=== PATIENT | male | born 1940 | race Caucasian/White ===

== ENCOUNTER 2020-05-29 16:51 | Emergency (ER) | payer OTHER ==
[2020-05-29 17:21] VITALS: BP 148/78; PULSE 85
[2020-05-29] MEDS ORDERED: Albuterol/Ipratropium 3.0-0.5 MG/3 ML Neb Soln NEB ONE (17:58)
--- NOTE | 2020-05-29 18:00 | EDM.PDOC ---
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 He sleeps sitting up in a recliner but has for some time. No fever or chills. Not coughing up anything. He does not aerosol in the morning and puffers later in the day. He sees Dr. Castillo at the [facility] in [place] and has a scheduled PET scan apparently coming up in [place] soon. Says he has not eaten much in recent days because he does not have any teeth and he has trouble chewing anything other than Rakan Arnaldo. Also concerned that he has not had much bowel movement the last few days but has not eaten much. Denies any chest pain. - Related Data Allergies Allergy/AdvReac Type Severity Reaction Status Date / Time ether [Ether] Allergy Severe Anaphylactic Verified 05/29/20 17:02 Shock Home Meds: Home Meds Aspirin 1 tab PO Q8H PRN 04/23/18 [History] Cholecalciferol (Vitamin D3) [Vitamin D3] 1 cap PO DAILY 04/23/18 [History] Multivitamin [One Daily] 1 tab PO DAILY 04/23/18 [History] Triamcinolone Aceton/0.9% NaCl [Triamcinolone Acet 100 mg/2 ml] 1 applic TOP BID 04/23/18 [History] Albuterol Sulfate [Proair Hfa] 2 puff IH Q6HR PRN 05/29/20 [History] Tiotropium [Spiriva HandiHaler] 1 puff IH DAILY 05/29/20 [History] Past Medical History HEENT History: Reports: Hard of Hearing, Impaired Vision Other HEENT History: dentures Respiratory History: Reports: COPD Other Respiratory History: due for follow up chest xray because Dr Mohamud saw a spot on left lung back in jun 2014. Genitourinary History: Reports: Other (See Below) Other Genitourinary History: frequent urination Oncologic (Cancer) History: Reports: Other (See Below) Other Oncologic History: hx of penial cancer Dermatologic History: Reports: Other (See Below) Other Dermatologic History: tick bite 2 yrs ago, treated with antibotics - Infectious Disease History Infectious Disease History: Reports: Measles - Past Surgical History Head Surgeries/Procedures: Reports: None HEENT Surgical History: Reports: Other (See Below) Other HEENT Surgeries/Procedures: 1964 - broken jaw, facial reconstructive surg suyapa Respiratory Surgical History: Reports: None GI Surgical History: Reports: Appendectomy Male Surgical History: Reports: TURP-Transurethral Resection of Prostate Oncologic Surgical History: Reports: None Dermatological Surgical History: Reports: None Social & Family History - Tobacco Use Tobacco Use Status *Q: Former Tobacco User Used Tobacco, but Quit: Yes Month/Year Tobacco Last Used: 2017 Second Hand Smoke Exposure: No - Caffeine Use Caffeine Use: Reports: Coffee - Recreational Drug Use Recreational Drug Use: No ED ROS GENERAL - Review of Systems Review Of Systems: See Below Constitutional: Reports: No Symptoms (10 systems reviewed he has no real acute changes other than primarily the respiratory issue and also not eating much because of a tooth problem or absence thereof) ED EXAM, GENERAL - Physical Exam Exam: See Below Free Text/Narrative:: Alert cooperative male sitting on the gurney who talks vigorously from the time I entered the room until I began asking questions. He suggest that he short of breath but he has no trouble speaking to me. HEENT shows eyes ears nose and throat otherwise are normal. He is edentulous. Neck is supple normal range of motion Chest has a scattered rhonchi there is a regular rate and rhythm Abdomen soft active bowel sounds no mass or tenderness Skin without notable edema or rash Extremities without deformity Neurologic is physiologic tone motion Exam Limited By: No Limitations Course - Vital Signs Text/Narrative:: Aerosols will be given to see we can help him breathe. Chest x-ray and KUB and laboratory tests Departure - Departure Disposition: Home, Self-Care 01 Clinical Impression: Pleural effusion, right, Shortness of breath - Discharge Information Instructions: Pleural Effusion Referrals: Hans Mohamud Sr, MD [Primary Care Provider] - Forms: ED Department Discharge Care Plan Goals: Take course of Zithromax as prescribed and prednisone daily with food also as prescribed. Recheck as scheduled and continue your other current medications. Return anytime if worsening or concerns. Sepsis Event Note (ED) - Evaluation Sepsis Screening Result: No Definite Risk <Bob Jacobson - Last Filed: 05/29/20 19:48> Course - Vital Signs Last Recorded V/S: Last Vital Signs Temp 98.1 F 05/29/20 17:07 Pulse 85 05/29/20 17:07 Resp 16 05/29/20 17:07 BP 148/78 H 05/29/20 17:07 Pulse Ox 97 05/29/20 17:07 - Orders/Labs/Meds Orders: Active Orders 24 hr Category Date Time Status EKG Documentation Completion [RC] ASDIRECTED Care 05/29/20 17:57 Active RT Aerosol Therapy [RC] ASDIRECTED Care 05/29/20 17:58 Active Abdomen 1V Flat [CR] Stat Exams 05/29/20 17:57 Taken Chest 1V Frontal [CR] Stat Exams 05/29/20 17:57 Taken EKG 12 Lead [EK] Stat Ther 05/29/20 17:56 Ordered Labs: Laboratory Tests 05/29/20 05/29/20 05/29/20 Range/Units 18:13 18:13 18:13 WBC 7.4 (4.5-11.0) K/uL RBC 5.12 (4.30-5.90) M/uL Hgb 14.1 (12.0-15.0) g/dL Hct 42.1 (40.0-54.0) % MCV 82 (80-98) fL MCH 28 (27-31) pg MCHC 34 (32-36) % Plt Count 323 (150-400) K/uL D-Dimer, Quantitative 1573.64 H (0.0-500.0) ng/mL ABG Hemoglobin (13.5-18.0) g/dL ABG Oxyhemoglobin % ABG Carboxyhemoglobin (0.0-1.6) % ABG Methemoglobin % VBG pH (7.350-7.450) VBG pCO2 mm/Hg VBG pO2 mm/Hg VBG HCO3 mmol/L VBG Total CO2 mmol/L VBG O2 Saturation VBG O2 Content %vol VBG Base Excess mm/L O2 Delivery Device Sodium 131 L (140-148) mmol/L Potassium 4.4 (3.6-5.2) mmol/L Chloride 100 (100-108) mmol/L Carbon Dioxide 23 (21-32) mmol/L Anion Gap 12.4 (5.0-14.0) mmol/L BUN 17 (7-18) mg/dL Creatinine 1.3 (0.8-1.3) mg/dL Est Cr Clr Drug Dosing 49.07 mL/min Estimated GFR (MDRD) 53 L (>60) Glucose 84 (74-106) mg/dL Calcium 10.0 (8.5-10.1) mg/dL Total Bilirubin 0.6 (0.2-1.0) mg/dL AST 24 (15-37) U/L ALT 23 (12-78) U/L Alkaline Phosphatase 58 (46-116) U/L Troponin I < 0.017 (0.000-0.056) ng/mL C-Reactive Protein 0.62 H (0.0-0.3) mg/dL Total Protein 8.1 (6.4-8.2) g/dL Albumin 3.6 (3.4-5.0) g/dL Globulin 4.5 H (2.3-3.5) g/dL Albumin/Globulin Ratio 0.8 L (1.2-2.2) Urine Color (YELLOW) Urine Appearance (CLEAR) Urine pH (5.0-8.0) Ur Specific Ringling (1.008-1.030) Urine Protein (NEGATIVE) mg/dL Urine Glucose (UA) (NEGATIVE) mg/dL Urine Ketones (NEGATIVE) mg/dL Urine Occult Blood (NEGATIVE) Urine Nitrite (NEGATIVE) Urine Bilirubin (NEGATIVE) Urine Urobilinogen (0.2-1.0) EU/dL Ur Leukocyte Esterase (NEGATIVE) Urine RBC (0-5) Urine WBC (0-5) Ur Epithelial Cells Amorphous Sediment Urine Bacteria Urine Mucus 05/29/20 05/29/20 Range/Units 18:13 18:26 WBC (4.5-11.0) K/uL RBC (4.30-5.90) M/uL Hgb (12.0-15.0) g/dL Hct (40.0-54.0) % MCV (80-98) fL MCH (27-31) pg MCHC (32-36) % Plt Count (150-400) K/uL D-Dimer, Quantitative (0.0-500.0) ng/mL ABG Hemoglobin 14.7 (13.5-18.0) g/dL ABG Oxyhemoglobin 80.5 % ABG Carboxyhemoglobin 2.6 H (0.0-1.6) % ABG Methemoglobin 0.7 % VBG pH 7.427 (7.350-7.450) VBG pCO2 34.5 mm/Hg VBG pO2 48.6 mm/Hg VBG HCO3 22.3 mmol/L VBG Total CO2 19.4 mmol/L VBG O2 Saturation 83.2 VBG O2 Content 16.6 %vol VBG Base Excess -0.9 mm/L O2 Delivery Device Room air Sodium (140-148) mmol/L Potassium (3.6-5.2) mmol/L Chloride (100-108) mmol/L Carbon Dioxide (21-32) mmol/L Anion Gap (5.0-14.0) mmol/L BUN (7-18) mg/dL Creatinine (0.8-1.3) mg/dL Est Cr Clr Drug Dosing mL/min Estimated GFR (MDRD) (>60) Glucose (74-106) mg/dL Calcium (8.5-10.1) mg/dL Total Bilirubin (0.2-1.0) mg/dL AST (15-37) U/L ALT (12-78) U/L Alkaline Phosphatase (46-116) U/L Troponin I (0.000-0.056) ng/mL C-Reactive Protein (0.0-0.3) mg/dL Total Protein (6.4-8.2) g/dL Albumin (3.4-5.0) g/dL Globulin (2.3-3.5) g/dL Albumin/Globulin Ratio (1.2-2.2) Urine Color Yellow (YELLOW) Urine Appearance Clear (CLEAR) Urine pH 5.5 (5.0-8.0) Ur Specific Ringling 1.025 (1.008-1.030) Urine Protein Negative (NEGATIVE) mg/dL Urine Glucose (UA) Negative (NEGATIVE) mg/dL Urine Ketones 15 H (NEGATIVE) mg/dL Urine Occult Blood Negative (NEGATIVE) Urine Nitrite Negative (NEGATIVE) Urine Bilirubin Negative (NEGATIVE) Urine Urobilinogen 0.2 (0.2-1.0) EU/dL Ur Leukocyte Esterase Small H (NEGATIVE) Urine RBC 0-5 (0-5) Urine WBC 0-5 (0-5) Ur Epithelial Cells Rare Amorphous Sediment Rare Urine Bacteria Rare Urine Mucus Rare Meds: Medications Discontinued Medications Generic Name Dose Route Start Last Admin Trade Name Freq PRN Reason Stop Dose Admin Albuterol/Ipratropium 3 ml 05/29/20 17:58 05/29/20 18:26 Duoneb 3.0-0.5 Mg/3 Ml NEB 05/29/20 17:59 3 ml ONETIME ONE Administration - Re-Assessments/Exams Free Text/Narrative Re-Assessment/Exam: 05/29/20 19:46 Patient care received from Dr. Delacruz pending lab and x-ray. Chest x-ray shows right pleural effusion with possible lesions, when I discussed this with the patient apparently [facility] and he already has a PET scan scheduled for later this week. His D-dimer was significantly elevated and I discussed with him a CT angiogram may give us more information but he declined that at this time and wants to get it later this week. He will be put on a short course of oral prednisone and Zithromax follow-up as scheduled. Copies of the labs, the x-ray and EKG were given to the patient for his appointment later this week. Departure - Departure Time of Disposition: 19:48 Sepsis Event Note (ED) - Focused Exam Vital Signs: Vital Signs Temp Pulse Resp BP Pulse Ox 05/29/20 17:07 98.1 F 85 16 148/78 H 97 05/29/20 17:06 98.1 F 85 16 148/78 H 97
--- NOTE | 2020-05-30 09:09 | CR ---
CHEST: PA CLINICAL HISTORY:Pain COMPARISON:CT chest 2018 FINDINGS: Patient is a small right pleural effusion which is new since prior study. There are nodular densities in the right infrahilar region consistent with annulus. There is some peripheral density in the right which may be pleural parenchymal scarring or fluid in the fissure. Left lung is clear. Heart and pulmonary vascularity are normal IMPRESSION: Small right pleural effusion with possible pleural thickening or pleural parenchymal scarring Known granulomatous disease Abdomen 1V Flat CLINICAL HISTORY: Constipation FINDINGS: No free air is identified. There are scattered granulomata in the liver and spleen. Small intestinal gas pattern is nonacute. There is a small calcification near the lateral psoas margin on the left at the L4 level. This may be within the retroperitoneum. A ureteral calcification is felt less likely but not excluded IMPRESSION: Nonacute intestinal gas pattern Previous granulomatous exposure Small left the paraspinal calcification near L4. Ureteral calcification felt unlikely but not excluded
== END 2020-05-29 20:01 | disposition home or self-care (01) ==
LOC: JP.ED 16:51
DX: J90 Pleural effusion, not elsewhere classified (principal); J44.9 Chronic obstructive pulmonary disease, unspecified; Z91.048 Other nonmedicinal substance allergy status; Z79.82 Long term (current) use of aspirin; Z79.899 Other long term (current) drug therapy; Z87.891 Personal history of nicotine dependence
CPT/HCPCS: 36415; 71045; 71045-26; 74018; 74018-26; 80053; 81001; 82803; 84484; 85027; 85379; 86140; 93005; 93010; 94640; 99284; 99285-25; J7620-GY

== ENCOUNTER 2020-07-14 14:28 | Observation (INO) | payer OTHER ==
--- NOTE | 2020-07-14 15:47 | CRLCT ---
Indication: Fall, head injury Technique: Volumetric multidetector CT images of the head were obtained without the administration of low osmolar intravenous contrast. Comparison: CT head December 28, 2014 Findings: There is a minimal amount of layering posttraumatic subarachnoid blood along the left frontal convexity. There is no other significant extra-axial or intra-axial fluids identified. There is no mass effect or midline shift. Again seen is moderate cortical atrophy predominantly of the frontal lobes and temporal lobes with prominence of the extra-axial CSF spaces. Ex vacuo dilatation of the lateral ventricles is appreciated with mild asymmetry of the left greater than right lateral ventricles. There are chronic small vessel disease changes in the subcortical and periventricular white matter without lost rosas-white differentiation. The orbits and their contents are grossly within normal limits. There is likely a small sebaceous cyst within the left parietal subcutaneous soft tissues. Otherwise, the bony calvarium is grossly intact. The paranasal sinuses are clear. The mastoid air cells are well aerated. Impression: Demonstration of a minimal amount of layering traumatic subarachnoid blood along the left frontal convexity sulci without evidence of significant intra-axial or extra-axial fluid collection. No evidence of midline shift. Age-related changes are appreciated. Please note that all CT scans at this facility use dose modulation, iterative reconstruction, and/or weight-based dosing when appropriate to reduce radiation dose to as low as reasonably achievable. Dictated by Shaan Moore MD @ Jul 14 2020 3:43PM Signed by Dr. Shaan Moore @ Jul 14 2020 3:46PM
--- NOTE | 2020-07-14 15:56 | EDM.PDOC ---
ED HPI GENERAL MEDICAL PROBLEM - General Chief Complaint: Head Injury Stated Complaint: FALL VIA NORTH Time Seen by Provider: 07/14/20 15:00 Source of Information: Reports: Patient History Limitations: Reports: No Limitations - History of Present Illness INITIAL COMMENTS - FREE TEXT/NARRATIVE: 80-year-old male was chasing a large ball through the parking lot that was blowing in the wind when he stumbled and hit his left parietal scalp hard on the concrete. His friend that was with him thought he may have been out "for a little bit". He now feels nauseous but otherwise feels okay. No neurologic deficits, just slight confusion. He has a few abrasions on his left arm, otherwise the injury that is concerning is a hematoma on the left parietal scalp. Onset: Sudden Duration: Hour(s): Location: Reports: Head (Left parietal scalp) Associated Symptoms: Reports: Confusion (Mild confusion), Other (Nausea but no vomiting) Headache Pain Score (Numeric/FACES): 3 - Related Data Allergies Allergy/AdvReac Type Severity Reaction Status Date / Time ether [Ether] Allergy Severe Anaphylactic Verified 07/14/20 14:34 Shock Home Meds: Home Meds Cholecalciferol (Vitamin D3) [Vitamin D3] 1 cap PO DAILY 04/23/18 [History] Multivitamin [One Daily] 1 tab PO DAILY 04/23/18 [History] Albuterol Sulfate [Proair Hfa] 2 puff IH Q6HR PRN 05/29/20 [History] Umeclidinium Orwell [Incruse Ellipta*] 1 inhalation INH DAILY 07/14/20 [History] Past Medical History HEENT History: Reports: Hard of Hearing, Impaired Vision Other HEENT History: dentures Respiratory History: Reports: COPD Other Respiratory History: due for follow up chest xray because Dr Mohamud saw a spot on left lung back in jun 2014. Genitourinary History: Reports: Other (See Below) Other Genitourinary History: frequent urination Oncologic (Cancer) History: Reports: Other (See Below) Other Oncologic History: hx of penial cancer Dermatologic History: Reports: Other (See Below) Other Dermatologic History: tick bite 2 yrs ago, treated with antibotics - Infectious Disease History Infectious Disease History: Reports: Measles - Past Surgical History Head Surgeries/Procedures: Reports: None HEENT Surgical History: Reports: Other (See Below) Other HEENT Surgeries/Procedures: 1964 - broken jaw, facial reconstructive surgery Respiratory Surgical History: Reports: None GI Surgical History: Reports: Appendectomy Male Surgical History: Reports: TURP-Transurethral Resection of Prostate Oncologic Surgical History: Reports: None Dermatological Surgical History: Reports: None Social & Family History - Tobacco Use Tobacco Use Status *Q: Never Tobacco User - Caffeine Use Caffeine Use: Reports: Coffee - Recreational Drug Use Recreational Drug Use: No ED ROS GENERAL - Review of Systems Review Of Systems: See Below Constitutional: Denies: Fever, Chills HEENT: Denies: Vision Change Respiratory: Denies: Shortness of Breath, Cough Cardiovascular: Denies: Chest Pain GI/Abdominal: Reports: Nausea. Denies: Abdominal Pain, Vomiting Skin: Reports: Bruising (Bruising and abrasion is present on the left parietal scalp, a few superficial abrasions on the left arm) Neurological: Denies: Headache Psychiatric: Reports: No Symptoms ED EXAM, HEAD INJURY - Physical Exam Exam: See Below Exam Limited By: No Limitations General Appearance: Alert, No Apparent Distress Head: Other (Patient has a fairly wide-based but shallow hematoma on the left parietal scalp with an overlying abrasion. It is tender to palpation, there is no tenderness over the temporal area.) Eyes: Bilateral Eye: PERRL Neck: Non-Tender Respiratory: No Respiratory Distress Cardiovascular: Regular Rate, Rhythm Neurologic: No Motor/Sensory Deficits, Normal Mood/Affect, Oriented x 3 - Ishmael Coma Score Best Eye Response (Ishmael): (4) Open Spontaneously Best Verbal Response ([place]): (5) Oriented Best Motor Response ([place]): (6) Obeys Commands Course - Vital Signs Last Recorded V/S: Last Vital Signs Temp 97.0 F 07/15/20 10:31 Pulse 81 07/15/20 10:31 Resp 16 07/15/20 10:31 BP 127/60 07/15/20 10:31 Pulse Ox 97 07/15/20 10:31 - Orders/Labs/Meds Labs: Laboratory Tests 07/14/20 07/14/20 Range/Units 16:20 16:20 WBC 10.4 (4.5-11.0) K/uL RBC 5.05 (4.30-5.90) M/uL Hgb 14.2 (12.0-15.0) g/dL Hct 41.5 (40.0-54.0) % MCV 82 (80-98) fL MCH 28 (27-31) pg MCHC 34 (32-36) % Plt Count 243 (150-400) K/uL Neut % (Auto) 89 H (36-66) % Lymph % (Auto) 5 L (24-44) % Appling % (Auto) 6 (2-6) % Eos % (Auto) 0 L (2-4) % Baso % (Auto) 0 (0-1) % Sodium 139 L (140-148) mmol/L Potassium 3.9 (3.6-5.2) mmol/L Chloride 103 (100-108) mmol/L Carbon Dioxide 28 (21-32) mmol/L Anion Gap 11.9 (5.0-14.0) mmol/L BUN 14 (7-18) mg/dL Creatinine 1.4 H (0.8-1.3) mg/dL Est Cr Clr Drug Dosing 45.57 mL/min Estimated GFR (MDRD) 49 L (>60) Glucose 101 (74-106) mg/dL Calcium 10.1 (8.5-10.1) mg/dL Meds: Medications Discontinued Medications Generic Name Dose Route Start Last Admin Trade Name Ibrahima PRN Reason Stop Dose Admin Acetaminophen 650 mg 07/14/20 22:31 07/15/20 12:53 Acetaminophen 325 Mg Tab PO 325 mg Q4H PRN Administration Pain Albuterol 0 gm 07/14/20 17:13 Albuterol 8 Gm Inhaler INH Q6H PRN short of breath Cholecalciferol 25 mcg 07/15/20 09:00 07/15/20 08:27 Cholecalciferol (Vitamin D3) 25 Mcg Tab PO 25 mcg DAILY LUKAS Administration Sodium Chloride 10 ml 07/14/20 17:07 Sodium Chloride 0.9% 10 Ml Syringe FLUSH ASDIRECTED PRN Keep Vein Open Tiotropium Orwell 0 gm 07/15/20 07:00 07/15/20 07:27 Tiotropium Orwell 4 Gm Inhalation Henderson (2.5mcg/1 Dose; 10 Doses) INH 4 gm DAILY@0700 LUKAS Administration - Re-Assessments/Exams Free Text/Narrative Re-Assessment/Exam: 07/14/20 15:56 CT scan was done and shows a very small area of hemorrhage in the frontal lobe on the left side. Images were sent to [facility] in [place] for a neurosurgical consultation. 07/14/20 16:28 Impression: Demonstration of a minimal amount of layering traumatic subarachnoid blood along the left frontal convexity sulci without evidence of significant intra-axial or extra-axial fluid collection. No evidence of midline shift. Age-related changes are appreciated. Above findings were discussed with neurosurgery in [place]. Recommendations for inpatient hospitalization for 1 day, monitor sodium and neurologic exams and repeat CT tomorrow and if unchanged can be discharged. Departure - Departure Time of Disposition: 18:47 Disposition: Admitted As Inpatient 67 Clinical Impression: Subarachnoid hemorrhage following injury Qualifiers: Encounter type: initial encounter Loss of consciousness presence/duration: with LOC of 30 min or less Qualified Code(s): S06.6X1A - Traumatic subarachnoid hemorrhage with loss of consciousness of 30 minutes or less, initial encounter - Discharge Information Sepsis Event Note (ED) - Evaluation Sepsis Screening Result: No Definite Risk
[2020-07-14] MEDS ORDERED: Sodium Chloride 0.9% 10 ML Syringe FLUSH PRN (17:07)
[2020-07-14] MEDS ORDERED: Albuterol 8 GM Inhaler INH PRN (17:13)
--- NOTE | 2020-07-14 17:21 | PCM.HP.2 ---
H&P History of Present Illness - General Date of Service: 07/14/20 Admit Problem/Dx: Admission Diagnosis/Problem Admission Diagnosis/Problem Subarachniod hemorrhage post injury w/o intracranial wound w LOC > 24 hrs Source of Information: Patient, EMS, Family History Limitations: Reports: No Limitations - History of Present Illness Initial Comments - Free Text/Narative: He fell on cement after chasing a ball the the wind blow out of his cart and fell hitting his head on asphalt and had LOC and memory loss immediately. At the time of my evaluation he had normal memory and was alert without a defect. He did have a CT of the head which showed a subarachnoid hemorrhage. A neurosurgeon was consulted by phone a advised observation and a CT of the head in the morning. Onset of Symptoms: Reports: Today, Sudden Duration of Symptoms: Reports: Hour(s): Location: Reports: Head Associated Symptoms: Reports: Weakness Headache Pain Score (Numeric/FACES): 3 - Related Data Allergies/Adverse Reactions: Allergies Allergy/AdvReac Type Severity Reaction Status Date / Time ether [Ether] Allergy Severe Anaphylactic Verified 07/14/20 14:34 Shock Home Medications: Home Meds Aspirin 1 tab PO Q8H PRN 04/23/18 [History] Cholecalciferol (Vitamin D3) [Vitamin D3] 1 cap PO DAILY 04/23/18 [History] Multivitamin [One Daily] 1 tab PO DAILY 04/23/18 [History] Albuterol Sulfate [Proair Hfa] 2 puff IH Q6HR PRN 05/29/20 [History] Umeclidinium [place] [Incruse Ellipta*] 1 inhalation INH DAILY 07/14/20 [History] Past Medical History HEENT History: Reports: Hard of Hearing, Impaired Vision Other HEENT History: dentures Respiratory History: Reports: COPD Other Respiratory History: due for follow up chest xray because Dr Mohamud saw a spot on left lung back in jun 2014. Genitourinary History: Reports: Other (See Below) Other Genitourinary History: frequent urination Oncologic (Cancer) History: Reports: Other (See Below) Other Oncologic History: hx of penial cancer Dermatologic History: Reports: Other (See Below) Other Dermatologic History: tick bite 2 yrs ago, treated with antibotics - Infectious Disease History Infectious Disease History: Reports: Measles - Past Surgical History Head Surgeries/Procedures: Reports: None HEENT Surgical History: Reports: Other (See Below) Other HEENT Surgeries/Procedures: 1964 - broken jaw, facial reconstructive surgery Respiratory Surgical History: Reports: None GI Surgical History: Reports: Appendectomy Male Surgical History: Reports: TURP-Transurethral Resection of Prostate Oncologic Surgical History: Reports: None Dermatological Surgical History: Reports: None Social & Family History - Tobacco Use Tobacco Use Status *Q: Never Tobacco User - Caffeine Use Caffeine Use: Reports: Coffee - Recreational Drug Use Recreational Drug Use: No H&P Review of Systems - Review of Systems: Review Of Systems: See Below General: Reports: Weakness HEENT: Reports: Headaches Pulmonary: Reports: No Symptoms Cardiovascular: Reports: No Symptoms Gastrointestinal: Reports: No Symptoms Genitourinary: Reports: No Symptoms Musculoskeletal: Reports: No Symptoms Skin: Reports: No Symptoms Psychiatric: Reports: No Symptoms Neurological: Reports: No Symptoms Hematologic/Lymphatic: Reports: No Symptoms Exam - Exam Exam: See Below - Vital Signs Vital Signs: Last Vital Signs Temp 97 F 07/14/20 14:47 Pulse 92 07/14/20 15:57 Resp 16 07/14/20 14:47 BP 132/75 07/14/20 15:57 Pulse Ox 98 07/14/20 15:57 Weight: 170 lb - Exam General: Alert, Oriented, 4 HEENT: PERRLA, Hearing Intact, Mucosa Moist & [place], Nares Patent, Normal Nasal Septum, Posterior Pharynx Clear, Conjunctiva Clear, EOMI, EACs Clear, TMs Clear Neck: Supple Lungs: Clear to Auscultation, Normal Respiratory Effort Cardiovascular: Regular Rate, Regular Rhythm GI/Abdominal Exam: Normal Bowel Sounds, Soft, Non-Tender, No Organomegaly, No Distention, No Abnormal Bruit, No Mass, Pelvis Stable Back Exam: Normal Inspection, Full Range of Motion, NT Extremities: Normal Inspection, Normal Range of Motion, Non-Tender, No Pedal Edema, Normal Capillary Refill Peripheral Pulses: 1+: Radial (L), Radial (R) Skin: Warm, Dry, Intact Neurological: Cranial Nerves Intact, Reflexes Equal Bilateral, Strength Equal Bilateral, Sensation Intact, Babinski Absent Neuro Extensive - Mental Status: Alert, Oriented x3, Normal Mood/Affect, Normal Cognition, Memory Intact Neuro Extensive - Motor, Sensory, Reflexes: CN II-XII Intact, Normal Gait, Normal Reflexes DTR: 1+: Patella (L), Patella (R), 2+: Bicep (L), Bicep (R) Psychiatric: Alert, Normal Affect, Normal Mood - Patient Data Lab Results Last 24 hrs: Laboratory Results - last 24 hr 07/14/20 07/14/20 Range/Units 16:20 16:20 WBC 10.4 (4.5-11.0) K/uL RBC 5.05 (4.30-5.90) M/uL Hgb 14.2 (12.0-15.0) g/dL Hct 41.5 (40.0-54.0) % MCV 82 (80-98) fL MCH 28 (27-31) pg MCHC 34 (32-36) % Plt Count 243 (150-400) K/uL Neut % (Auto) 89 H (36-66) % Lymph % (Auto) 5 L (24-44) % [place] % (Auto) 6 (2-6) % Eos % (Auto) 0 L (2-4) % Baso % (Auto) 0 (0-1) % Sodium 139 L (140-148) mmol/L Potassium 3.9 (3.6-5.2) mmol/L Chloride 103 (100-108) mmol/L Carbon Dioxide 28 (21-32) mmol/L Anion Gap 11.9 (5.0-14.0) mmol/L BUN 14 (7-18) mg/dL Creatinine 1.4 H (0.8-1.3) mg/dL Est Cr Clr Drug Dosing 45.57 mL/min Estimated GFR (MDRD) 49 L (>60) Glucose 101 (74-106) mg/dL Calcium 10.1 (8.5-10.1) mg/dL Result Diagrams: 07/14/20 16:20 07/14/20 16:20 Sepsis Event Note - Evaluation Sepsis Screening Result: No Definite Risk - Focused Exam Vital Signs: Vital Signs Temp Pulse Resp BP Pulse Ox 07/14/20 15:57 92 132/75 98 07/14/20 14:47 97 F 90 16 142/69 H 96 Problem List Initiated/Reviewed/Updated: Yes Orders Last 24hrs: Active Orders 24 hr Category Date Time Status Patient Status [ADT] Routine ADT 07/14/20 17:07 Ordered Cardiac Monitoring [RC] .As Directed Care 07/14/20 17:11 Ordered Height and Weight [RC] UPON Care 07/14/20 17:07 Ordered Intake and Output [RC] QSHIFT Care 07/14/20 17:11 Ordered May Shower [RC] ASDIRECTED Care 07/14/20 17:07 Ordered Neuro Check [RC] Q2HR Care 07/14/20 17:14 Ordered Oxygen Therapy [RC] PRN Care 07/14/20 17:07 Ordered RT Post Treatment Assessment [RC] Click to Edit Care 07/14/20 17:14 Ordered Up With Assistance [RC] ASDIRECTED Care 07/14/20 17:07 Ordered VTE/DVT Education [RC] Per Unit Routine Care 07/14/20 17:07 Ordered Vital Signs [RC] Q4H Care 07/14/20 17:07 Ordered Regular Diet [DIET] Diet 07/15/20 Breakfast Ordered Albuterol [Ventolin HFA] Med 07/14/20 17:13 Ordered 2 puff INH Q6HR PRN Cholecalciferol (Vitamin D3) [Vitamin D3] Med 07/15/20 09:00 Ordered 1 cap PO DAILY Sodium Chloride 0.9% [Saline Flush] Med 07/14/20 17:07 Ordered 10 ml FLUSH ASDIRECTED PRN Umeclidinium [place] [Incruse Ellipta*] Med 07/15/20 09:00 Ordered 1 inhalation INH DAILY Saline Lock Insert [OM.PC] Routine Oth 07/14/20 17:07 Ordered Resuscitation Status Routine Resus Stat 07/14/20 17:07 Ordered Medication Orders Albuterol (Albuterol 8 Gm Inhaler) gm INH Q6HR PRN PRN Reason: short of breath Non-Formulary Medication (Cholecalciferol (Vitamin D3) [Vitamin D3]) 1 cap PO DAILY [place] Non-Formulary Medication (Umeclidinium [place] [Incruse Ellipta*]) 1 inhalation INH DAILY [place] Sodium Chloride (Sodium Chloride 0.9% 10 Ml Syringe) 10 ml FLUSH ASDIRECTED PRN PRN Reason: Keep Vein Open Assessment/Plan Comment:: Assessment/Plan: #1. Subarachnoid hemorrhage. Will observe tonight and repeat the CT in the morning. #2. Emphysema: Stable presently #3. HTN: Will observe and monitor bp's closely - Mortality Measure Prognosis:: Good
[2020-07-14] MEDS: Acetaminophen 325 MG Tab PO PRN (22:57)
[2020-07-15] MEDS ORDERED: Tiotropium Bromide 4 GM Inhalation Spray (2.5mcg/1 dose; 10 doses) INH SCH ×2 (07:00)
[2020-07-15] MEDS ORDERED: Cholecalciferol (Vitamin D3) 25 MCG Tab PO SCH (09:00)
[2020-07-15 10:31] VITALS: BP 127/60; PULSE 81
--- NOTE | 2020-07-15 10:51 | CT ---
Head wo Cont CLINICAL HISTORY: Follow-up subarachnoid bleed COMPARISON: 07/14/2020 TECHNIQUE: Transverse scans were obtained from the base of the skull through the vertex without IV contrast on a multislice, multidetector CT scanner. Auto dosage reduction and iterative reconstruction techniques employed. FINDINGS: Patient has a known focus of subarachnoid hemorrhage over the left frontal convexity. The amount of blood has increased just slightly since prior study. There is no mass effect, hemorrhage, or extraaxial collection. The basal cisterns and sulci over the convexities are prominent. The ventricles are normal size for age. Frontal lobe asymmetry is unchanged since 2015 IMPRESSION: Slight increase in localized subarachnoid hemorrhage over the left frontal convexity. There is no mass effect Age-related atrophy
--- NOTE | 2020-07-15 12:31 | PCM.PN ---
- General Info Date of Service: 07/15/20 Functional Status: Reports: Pain Controlled - Review of Systems General: Reports: No Symptoms HEENT: Reports: No Symptoms Pulmonary: Reports: No Symptoms Cardiovascular: Reports: No Symptoms Gastrointestinal: Reports: No Symptoms Genitourinary: Reports: No Symptoms Musculoskeletal: Reports: No Symptoms Skin: Reports: No Symptoms Neurological: Reports: No Symptoms - Patient Data Vitals - Most Recent: Last Vital Signs Temp 97.0 F 07/15/20 10:31 Pulse 81 07/15/20 10:31 Resp 16 07/15/20 10:31 BP 127/60 07/15/20 10:31 Pulse Ox 97 07/15/20 10:31 Weight - Most Recent: 170 lb I&O - Last 24 Hours: Intake & Output 07/14/20 07/15/20 07/15/20 22:59 06:59 14:59 Output Total 300 Balance -300 Lab Results Last 24 Hours: Laboratory Results - last 24 hr 07/14/20 07/14/20 Range/Units 16:20 16:20 WBC 10.4 (4.5-11.0) K/uL RBC 5.05 (4.30-5.90) M/uL Hgb 14.2 (12.0-15.0) g/dL Hct 41.5 (40.0-54.0) % MCV 82 (80-98) fL MCH 28 (27-31) pg MCHC 34 (32-36) % Plt Count 243 (150-400) K/uL Neut % (Auto) 89 H (36-66) % Lymph % (Auto) 5 L (24-44) % [place] % (Auto) 6 (2-6) % Eos % (Auto) 0 L (2-4) % Baso % (Auto) 0 (0-1) % Sodium 139 L (140-148) mmol/L Potassium 3.9 (3.6-5.2) mmol/L Chloride 103 (100-108) mmol/L Carbon Dioxide 28 (21-32) mmol/L Anion Gap 11.9 (5.0-14.0) mmol/L BUN 14 (7-18) mg/dL Creatinine 1.4 H (0.8-1.3) mg/dL Est Cr Clr Drug Dosing 45.57 mL/min Estimated GFR (MDRD) 49 L (>60) Glucose 101 (74-106) mg/dL Calcium 10.1 (8.5-10.1) mg/dL Med Orders - Current: Current Medications Acetaminophen (Acetaminophen 325 Mg Tab) 650 mg PO Q4H PRN PRN Reason: Pain Last Admin: 07/14/20 22:57 Dose: 325 mg Documented by: Albuterol (Albuterol 8 Gm Inhaler) 0 gm INH Q6H PRN PRN Reason: short of breath Cholecalciferol (Cholecalciferol (Vitamin D3) 25 Mcg Tab) 25 mcg PO DAILY [facility] Last Admin: 07/15/20 08:27 Dose: 25 mcg Documented by: Sodium Chloride (Sodium Chloride 0.9% 10 Ml Syringe) 10 ml FLUSH ASDIRECTED PRN PRN Reason: Keep Vein Open Tiotropium [place] (Tiotropium [place] 4 Gm Inhalation [place] (2.5mcg/1 Dose; 10 Doses)) 0 gm INH DAILY@0700 [facility] Last Admin: 07/15/20 07:27 Dose: 4 gm Documented by: - Exam General: Alert, Oriented HEENT: Pupils Equal, Pupils Reactive, EOMI, Mucous Membr. Moist/[place] Neck: Supple Lungs: Clear to Auscultation, Normal Respiratory Effort Cardiovascular: Regular Rate, Regular Rhythm GI/Abdominal Exam: Normal Bowel Sounds, Soft, Non-Tender, No Organomegaly, No Distention, No Abnormal Bruit, No Mass, Pelvis Stable Back Exam: Normal Inspection, Full Range of Motion Extremities: Normal Inspection, Normal Range of Motion, Non-Tender, No Pedal Edema, Normal Capillary Refill Peripheral Pulses: 1+: Radial (L), Radial (R) Neurological: No New Focal Deficit Psy/Mental Status: Alert, Normal Affect, Normal Mood - Patient Data Lab Results Last 24 hrs: Laboratory Results - last 24 hr 07/14/20 07/14/20 Range/Units 16:20 16:20 WBC 10.4 (4.5-11.0) K/uL RBC 5.05 (4.30-5.90) M/uL Hgb 14.2 (12.0-15.0) g/dL Hct 41.5 (40.0-54.0) % MCV 82 (80-98) fL MCH 28 (27-31) pg MCHC 34 (32-36) % Plt Count 243 (150-400) K/uL Neut % (Auto) 89 H (36-66) % Lymph % (Auto) 5 L (24-44) % [place] % (Auto) 6 (2-6) % Eos % (Auto) 0 L (2-4) % Baso % (Auto) 0 (0-1) % Sodium 139 L (140-148) mmol/L Potassium 3.9 (3.6-5.2) mmol/L Chloride 103 (100-108) mmol/L Carbon Dioxide 28 (21-32) mmol/L Anion Gap 11.9 (5.0-14.0) mmol/L BUN 14 (7-18) mg/dL Creatinine 1.4 H (0.8-1.3) mg/dL Est Cr Clr Drug Dosing 45.57 mL/min Estimated GFR (MDRD) 49 L (>60) Glucose 101 (74-106) mg/dL Calcium 10.1 (8.5-10.1) mg/dL Result Diagrams: 07/14/20 16:20 07/14/20 16:20 Sepsis Event Note - Evaluation Sepsis Screening Result: No Definite Risk - Focused Exam Vital Signs: Vital Signs Temp Pulse Resp BP Pulse Ox 07/15/20 10:31 97.0 F 81 16 127/60 97 07/15/20 07:13 97.0 F 80 16 120/61 99 07/15/20 04:14 98.3 F 90 18 114/64 97 - Problem List Review Problem List Initiated/Reviewed/Updated: Yes - My Orders Last 24 Hours: My Active Orders 07/14/20 17:07 Patient Status [ADT] Routine May Shower [RC] ASDIRECTED Oxygen Therapy [RC] PRN Up With Assistance [RC] ASDIRECTED VTE/DVT Education [RC] Per Unit Routine Vital Signs [RC] Q4H Sodium Chloride 0.9% [Saline Flush] 10 ml FLUSH ASDIRECTED PRN Saline Lock Insert [OM.PC] Routine Resuscitation Status Routine 07/14/20 17:11 Cardiac Monitoring [RC] .As Directed Intake and Output [RC] Q12H 07/14/20 17:13 Albuterol [Ventolin HFA] 0 gm INH Q6H PRN 07/14/20 17:14 Neuro Check [RC] Q2HR RT Post Treatment Assessment [RC] Click to Edit 07/14/20 22:31 Acetaminophen [TylenoL] 650 mg PO Q4H PRN 07/15/20 07:00 Tiotropium [place] [Spiriva Respimat] 0 gm INH DAILY@0700 07/15/20 Breakfast Regular Diet [DIET] 07/15/20 09:00 Cholecalciferol (Vitamin D3) [Vitamin D3] 25 mcg PO DAILY - Plan Plan:: Assessment/Plan: #1. Subarachnoid hemorrhage. There are no new neuro findings. The CT did show a mild increase in blood. I spoke with a Neuro Surg. from [place] and he said to send him home and repeat the CT in one week. Any neuro changes he is to call me immediately. To take no aspirin for 1 week. #2. Emphysema: Stable presently #3. HTN: 127/60 medically stable.
--- NOTE | 2020-07-15 12:36 | PCM.DCSUM1 ---
Discharge Summary - Hospital Course HPI Initial Comments: Fell yesterday and hit his head and had LOC for a short period of time. Diagnosis: Stroke: No - Discharge Data Discharge Date: 07/15/20 Discharge Disposition: Home, Self-Care 01 Condition: Good - Referral to Home Health Primary Care Physician: Hans Mohamud Sr, MD - Patient Summary/Data Hospital Course: He was observed over night without a neuro change and the CT did show a slight increase in bleeding. I spoke with a [facility] surg. who recommended to be disc harged and repeat the scan in one week. - Patient Instructions Diet: Heart Healthy Diet Activity: As Tolerated - Discharge Plan *PRESCRIPTION DRUG MONITORING PROGRAM REVIEWED*: No *COPY OF PRESCRIPTION DRUG MONITORING REPORT IN PATIENT DION: No Home Medications: Home Meds Aspirin 1 tab PO Q8H PRN 04/23/18 [History] Cholecalciferol (Vitamin D3) [Vitamin D3] 1 cap PO DAILY 04/23/18 [History] Multivitamin [One Daily] 1 tab PO DAILY 04/23/18 [History] Albuterol Sulfate [Proair Hfa] 2 puff IH Q6HR PRN 05/29/20 [History] Umeclidinium [place] [Incruse Ellipta*] 1 inhalation INH DAILY 07/14/20 [History] Forms: ED Department Discharge Referrals: Hans Mohamud Sr, MD [Primary Care Provider] - - Discharge Summary/Plan Comment DC Time >30 min.: Yes Discharge Summary/Plan Comment: Assessment/Plan: #1. Subarachnoid hemorrhage. There are no new neuro findings. The CT did show a mild increase in blood. I spoke with a Neuro Surg. from [place] and he said to send him home and repeat the CT in one week. Any neuro changes he is to call me immediately. To take no aspirin for 1 week. #2. Emphysema: Stable presently #3. HTN: 127/60 medically stable. - General Info Admission Dx/Problem (Free Text: Admission Diagnosis/Problem Admission Diagnosis/Problem Subarachniod hemorrhage post injury w/o intracranial wound w LOC > 24 hrs Functional Status: Reports: Pain Controlled - Review of Systems General: Reports: No Symptoms HEENT: Reports: No Symptoms Pulmonary: Reports: No Symptoms Cardiovascular: Reports: No Symptoms Gastrointestinal: Reports: No Symptoms Genitourinary: Reports: No Symptoms Musculoskeletal: Reports: No Symptoms Skin: Reports: No Symptoms Neurological: Reports: No Symptoms Psychiatric: Reports: No Symptoms - Patient Data Vitals - Most Recent: Last Vital Signs Temp 97.0 F 07/15/20 10:31 Pulse 81 07/15/20 10:31 Resp 16 07/15/20 10:31 BP 127/60 07/15/20 10:31 Pulse Ox 97 07/15/20 10:31 Weight - Most Recent: 170 lb I&O - Last 24 hours: Intake & Output 07/14/20 07/15/20 07/15/20 22:59 06:59 14:59 Output Total 300 Balance -300 Lab Results - Last 24 hrs: Laboratory Results - last 24 hr 07/14/20 07/14/20 Range/Units 16:20 16:20 WBC 10.4 (4.5-11.0) K/uL RBC 5.05 (4.30-5.90) M/uL Hgb 14.2 (12.0-15.0) g/dL Hct 41.5 (40.0-54.0) % MCV 82 (80-98) fL MCH 28 (27-31) pg MCHC 34 (32-36) % Plt Count 243 (150-400) K/uL Neut % (Auto) 89 H (36-66) % Lymph % (Auto) 5 L (24-44) % [place] % (Auto) 6 (2-6) % Eos % (Auto) 0 L (2-4) % Baso % (Auto) 0 (0-1) % Sodium 139 L (140-148) mmol/L Potassium 3.9 (3.6-5.2) mmol/L Chloride 103 (100-108) mmol/L Carbon Dioxide 28 (21-32) mmol/L Anion Gap 11.9 (5.0-14.0) mmol/L BUN 14 (7-18) mg/dL Creatinine 1.4 H (0.8-1.3) mg/dL Est Cr Clr Drug Dosing 45.57 mL/min Estimated GFR (MDRD) 49 L (>60) Glucose 101 (74-106) mg/dL Calcium 10.1 (8.5-10.1) mg/dL Med Orders - Current: Current Medications Acetaminophen (Acetaminophen 325 Mg Tab) 650 mg PO Q4H PRN PRN Reason: Pain Last Admin: 07/14/20 22:57 Dose: 325 mg Documented by: Albuterol (Albuterol 8 Gm Inhaler) 0 gm INH Q6H PRN PRN Reason: short of breath Cholecalciferol (Cholecalciferol (Vitamin D3) 25 Mcg Tab) 25 mcg PO DAILY [facility] Last Admin: 07/15/20 08:27 Dose: 25 mcg Documented by: Sodium Chloride (Sodium Chloride 0.9% 10 Ml Syringe) 10 ml FLUSH ASDIRECTED PRN PRN Reason: Keep Vein Open Tiotropium [place] (Tiotropium [place] 4 Gm Inhalation [place] (2.5mcg/1 Dose; 10 Doses)) 0 gm INH DAILY@0700 [facility] Last Admin: 07/15/20 07:27 Dose: 4 gm Documented by: - Exam General: Reports: Alert HEENT: Reports: Pupils Equal, Pupils Reactive, EOMI, Mucous Membr. Moist/[place] Neck: Reports: Supple Lungs: Reports: Clear to Auscultation, Normal Respiratory Effort Cardiovascular: Reports: Regular Rate, Regular Rhythm GI/Abdominal Exam: Normal Bowel Sounds, Soft, Non-Tender, No Organomegaly, No Distention, No Abnormal Bruit, No Mass, Pelvis Stable Back Exam: Reports: Normal Inspection, Full Range of Motion Extremities: Normal Inspection, Normal Range of Motion, Non-Tender, No Pedal Edema, Normal Capillary Refill Skin: Reports: Warm, Dry, Intact Neurological: Reports: No New Focal Deficit Psy/Mental Status: Reports: Alert, Normal Affect, Normal Mood
[2020-07-15] MEDS: Acetaminophen 325 MG Tab PO PRN (12:53)
== END 2020-07-15 13:28 | disposition home or self-care (01) ==
LOC: JP.ED 14:28 → JP.MS 17:07
PROVIDERS: ADMIT Internal Medicine; ATTEND Internal Medicine
DX: S06.6X1A Traumatic subarachnoid hemorrhage with loss of consciousness of 30 minutes or less, initial encounter (principal); J43.9 Emphysema, unspecified; I10 Essential (primary) hypertension; Z79.82 Long term (current) use of aspirin; Z79.899 Other long term (current) drug therapy; Z98.890 Other specified postprocedural states; Z91.09 Other allergy status, other than to drugs and biological substances; W18.09XA Striking against other object with subsequent fall, initial encounter
CPT/HCPCS: 36415; 70450; 70450-26; 80048; 85025; 94640; 99285-25; A9270-GY; G0378

== ENCOUNTER 2020-12-23 05:47 | Day surgery (SDC) | payer MEDICARE ==
[2020-12-23] MEDS ORDERED: Sodium Chloride 0.9% 1,000 ML IV SCH (06:10)
[2020-12-23] MEDS ORDERED: fentaNYL 100 MCG/2 ML SDV ONE (07:00)
[2020-12-23] MEDS ORDERED: Propofol 200 MG/20 ML SDV ONE (07:01)
[2020-12-23 08:43] VITALS: BP 129/61; PULSE 80
--- NOTE | 2020-12-24 21:48 | PROC ---
DATE OF PROCEDURE: 12/23/2020 SURGEON: Hans Mohamud MD INDICATIONS: La is a 80-year-old male who was recently at [facility] and they wanted a colonoscopy done as soon as possible. 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 The risks and benefits were explained to the patient and was taken to the OR. PROCEDURE IN DETAIL: The anesthesia was given by nurse claim processor. 100 mcg of fentanyl was again given and 110 mg of propofol. The Olympus 190 scope was used, was placed into the rectum after examination of the rectum with a gloved finger which revealed no abnormality. The tube was advanced and there was a poor prep throughout the entire colon. We did get to the cecum. Upon retraction of the tube noted polyp in the ascending colon. This was biopsied. The remainder of the colon was closely observed, but it was limited by a large amount of stool material throughout the entire colonic area. The tube was removed. The patient tolerated the procedure well. PREOPERATIVE DIAGNOSIS: Screening colonoscopy. POSTOPERATIVE DIAGNOSIS: A polyp at the ascending colon, biopsied. Path report is pending. Hans Mohamud MD /[id number]
== END 2020-12-23 08:57 | disposition home or self-care (01) ==
LOC: JP.SDS 05:47
PROVIDERS: ATTEND Internal Medicine
DX: Z12.11 Encounter for screening for malignant neoplasm of colon (principal); D12.2 Benign neoplasm of ascending colon; E78.5 Hyperlipidemia, unspecified; I12.9 Hypertensive chronic kidney disease with stage 1 through stage 4 chronic kidney disease, or unspecified chronic kidney disease; N18.9 Chronic kidney disease, unspecified; J44.9 Chronic obstructive pulmonary disease, unspecified; Z85.46 Personal history of malignant neoplasm of prostate; Z85.89 Personal history of malignant neoplasm of other organs and systems
CPT/HCPCS: 45380; J2704; J3010; J7030

== ENCOUNTER → 2020-12-29 | Day surgery (SDC) | payer MEDICARE ==
[~2020-12-29] MED LIST: Albuterol/Ipratropium 3.0-0.5 MG/3 ML Neb Soln NEB ONE; Bupivacaine 0.5% 50 ML MDV ONE; Dextrose 5%-Lactated Ringers 1,000 ML IV SCH; Lidocaine 1% with EPINEPHrine 1:100,000 50 ML MDV ONE; Linezolid 600 MG in Premix Bag 1 BAG IV ONE; Midazolam 1 MG/ML 2 ML SDV ONE; Propofol 200 MG/20 ML SDV ONE; fentaNYL 100 MCG/2 ML SDV ONE
[2020-12-29 11:49] VITALS: BP 132/70; PULSE 79
--- NOTE | 2021-01-09 14:16 | OR ---
DATE OF PROCEDURE: 12/29/2020 SURGEON: Sunny Smith MD PREOPERATIVE DIAGNOSIS: Indications for central venous access. POSTOPERATIVE DIAGNOSIS: Indications for central venous access. OPERATIVE PROCEDURE: Placement of Bard PowerPort ([id number]). ANESTHESIA: Local plus IV sedation. INDICATIONS FOR PROCEDURE: This is a 80-year-old male presenting with indications for chemotherapy. The plan is to proceed with Bard port placement. Potential risks including bleeding, infection, injury to vasculature or lung, possible problems with the port becoming infected or occluded were all gone over, and the patient wishes to proceed. DETAILS OF PROCEDURE: The patient was taken to the operating room and placed in a supine position. IV sedation was administered, after which the upper chest and neck areas were prepped and draped. The left subclavian area was anesthetized with 1% lidocaine mixed with Marcaine and left subclavian vein cannulated. A guidewire passed from there into the superior vena cava. A transverse incision was made after some additional local anesthetic was injected, carried down through the skin and subcutaneous tissue and through the pectoralis major fascia. The subpectoralis major fascia pocket was then constructed and the Bard port was then placed in that position as previously assembled and flushed, and the catheter was cut such that the tip would lie in the upper superior vena cava adjacent to the right atrium. Using the introducer and peel-away catheter, both catheters were placed without difficulty. Good in and outflow was noted. Port was flushed with heparinized saline. The incision was closed with 3-0 Vicryl stitch deep and 5-0 Vicryl subcuticular stitch. Steri-Strips were applied. The patient was taken to the recovery room in satisfactory condition. Sunny Smith MD /[id number]
== END ==
LOC: JP.SDS 07:01
PROVIDERS: ATTEND Surgery
DX: C34.90 Malignant neoplasm of unspecified part of unspecified bronchus or lung (principal); J43.9 Emphysema, unspecified; E78.5 Hyperlipidemia, unspecified; I10 Essential (primary) hypertension; Z88.8 Allergy status to other drugs, medicaments and biological substances
CPT/HCPCS: 36415; 36561; 82565; 94640; C1788; J1642; J2020; J2250; J2704; J3010; J3490; J7121; J7620-GY

== ENCOUNTER 2021-10-04 12:42 | Emergency (ER) | payer MEDICARE ==
[2021-10-04] MEDS ORDERED: Sodium Chloride 0.9% 1,000 ML IV SCH ×2 (14:00→16:15)
[2021-10-04] MEDS ORDERED: Albuterol 0.083% 2.5 MG/3 ML Neb Soln NEB ONE (16:23)
[2021-10-04 17:06] VITALS: BP 116/62; PULSE 97
== END 2021-10-04 18:03 | disposition home or self-care (01) ==
LOC: JP.ED 12:42
DX: C34.90 Malignant neoplasm of unspecified part of unspecified bronchus or lung (principal); E86.0 Dehydration; J44.9 Chronic obstructive pulmonary disease, unspecified; Z91.048 Other nonmedicinal substance allergy status; Z79.899 Other long term (current) drug therapy; Z91.09 Other allergy status, other than to drugs and biological substances; Z91.14 Patient's other noncompliance with medication regimen
CPT/HCPCS: 36415; 70450; 70450-26; 71045; 71045-26; 80053; 81001; 82550; 83735; 85025; 94640; 96360; 96361; 99283; 99285-25; J1642; J7030